=== PATIENT | male | born 1965 | race Hispanic/Latino ===

== ENCOUNTER 2016-09-19 07:05 | Day surgery (SDC) | payer OTHER ==
[~2016-09-19 07:05] MED LIST: ANCEF/STERILE WATER 2 GM/20 ML 20 ML IV NR; NACL 0.9% 1000 ML 1,000 ML IV SCH
--- NOTE | 2016-09-19 08:18 | Anesthesia Consultation ---
Addendum entered and electronically signed by CANDELARIO JONES PA 09/19/16 09:12: [id number] Original Note: Anesthesia Consult and Med Hx Date of service: 09/19/16 - Airway Anesthetic Teeth Evaluation: Good ROM Head & Neck: Adequate Mental/Hyoid Distance: Adequate Mallampati Class: Class II Intubation Access Assessment: Probably Good - Pre-Operative Health Status Proposed Anesthetic Plan: General - Other Systems Hx Alcohol Use: Yes (BEER ON SPECIAL OCCAS) Hx Obesity: Yes (BMI 36.5)
--- NOTE | 2016-09-19 08:19 | Anesthesia Day of Surgery ---
Anesthesia Day of Surgery - Day of Surgery Patient Examined: Yes Patient H&P Reviewed: Yes Patient is NPO: Yes
[2016-09-19] MEDS ORDERED: DIPRIVAN 10 MG/ML IV ONE (08:44)
[2016-09-19] MEDS ORDERED: DILAUDID ONE ×2 (08:44→12:21)
[2016-09-19] MEDS ORDERED: PEPCID IV NR (09:00)
[2016-09-19] MEDS ORDERED: VERSED IV NR (09:00)
[2016-09-19] MEDS ORDERED: ZOFRAN ONE (10:08)
[2016-09-19] MEDS ORDERED: XYLOCAINE MPF 2% ONE (10:08)
[2016-09-19] MEDS ORDERED: MARCAINE 0.5% INFILTRATI ONE (10:44)
[2016-09-19] MEDS ORDERED: NACL 0.9% IR ONE (10:44)
--- NOTE | 2016-09-19 12:10 | Operative Report ---
Operative Report Operative Report: Date of procedure: 09/19/2016 Pre-operative diagnosis: Subcutaneous mass uncertain etiology, left lower leg Post-operative diagnosis: Inflammatory tissue, fascial defect anterior/lateral compartment with sensory neural entrapment Procedure name(s): Excision of inflammatory mass, varicose veins, neural lysis left fascial defect lower leg Surgeon: Waqar Garcia MD Anesthesia: Oral using LMA local field block EBL: Minimal Specimen(s): Laboratory tissue, varicose veins, nerve Complications: None Findings: Fascial defect with muscle bulging entrapping vein artery and nerve left lower leg lateral compartment Procedure: Patient in the supine position after adequate levels of general anesthesia was obtained the left lower extremity was prepped and draped using standard sterile technique. A longitudinal incision was made over the previously marked mass lateral aspect of the left lower leg fully carried down into the soft tissue. Varicosities were identified and ligated. Slowly but surely and dissected the inflammatory tissue away from the area doing my best to identify any neural tissue that was encountered. Laterally it was found that there was a relatively large at least quarter to half dollar sized defect in the fascia with muscle (anterior tibialis, extensor digitorum )bulging through this defect like a hernia. Appeared that a sensory nerve was entrapped at the fascial edge by this muscle bulge and may have accounted for the pain. The peroneal nerve was identified and preserved. I gradually delineated the entire fascial defect and the bulge and removed all inflammatory tissue leaving only muscle behind. At least 1 of the sensory nerves were sacrificed the others were moved. I extended the fascial opening vertically both proximal and distal in an effort to reduce the hernia type effect tissue was sent for pathology I then brought the entire area using Marcaine 0.5% but elected not to close the fascial defect. Rather I closed the skin using interrupted vertical mattress sutures. Sterile dressing was applied the patient was extubated and returned to recovery area in stable condition having tolerated the procedure well. Needle counts were correct.
--- NOTE | 2016-09-19 12:15 | Short Stay Summary ---
Short Stay Documentation Date of service: 09/19/16 Narrative H&P: Admitted to the OR for outpatient excision of mass of uncertain etiology lateral aspect left calf - History H&P: obtained from office - Allergies and Medications Current Medications: Allergies sulfamethoxazole [From Bactrim] Allergy (Verified 09/10/16 17:38) Hives trimethoprim [From Bactrim] Allergy (Verified 09/10/16 17:38) Hives Home Medications Medication Instructions Recorded Confirmed Last Taken Type Mv,Ca,Min/Iron Fum/FA/Lyco/Lut 1 each PO QDAY 09/10/16 09/19/16 09/18/16 09:00 History [Complete Multi Tablet] Zinc Gluconate [Elemental Zinc] 30 mg PO QDAY 09/10/16 09/19/16 09/18/16 09:00 History Active Medications Famotidine (Pepcid) 20 mg IV PREOP NR Stop: 09/19/16 23:59 Last Admin: 09/19/16 08:38 Dose: 20 mg Cefazolin Sodium (Ancef/Sterile Water 2 Gm/20 Ml) 20 mls @ 80 mls/hr IV PREOP NR PRN Reason: Protocol Stop: 09/19/16 23:59 Sodium Chloride (Nacl 0.9% 1000 Ml) 1,000 mls @ 42 mls/hr IV DIRECT NESHA Last Admin: 09/19/16 08:36 Dose: 42 mls/hr Midazolam HCl (Versed) 2 mg IV PREOP NR Stop: 09/19/16 23:59 Last Admin: 09/19/16 08:36 Dose: 2 mg - Brief post op/procedure progress note Date of procedure: 09/19/16 Procedure: Pre-operative diagnosis: Subcutaneous mass uncertain etiology, left lower leg Post-operative diagnosis: Inflammatory tissue, fascial defect anterior/lateral compartment with sensory neural entrapment Procedure name(s): Excision of inflammatory mass, varicose veins, neural lysis left fascial defect lower leg Surgeon: Waqar Garcia MD Anesthesia: Oral using LMA local field block EBL: Minimal Specimen(s): Laboratory tissue, varicose veins, nerve Complications: None Findings: Fascial defect with muscle bulging entrapping vein artery and nerve left lower leg lateral compartment Procedure: Patient in the supine position after adequate levels of general anesthesia was obtained the left lower extremity was prepped and draped using standard sterile technique. A longitudinal incision was made over the previously marked mass lateral aspect of the left lower leg fully carried down into the soft tissue. Varicosities were identified and ligated. Slowly but surely and dissected the inflammatory tissue away from the area doing my best to identify any neural tissue that was encountered. Laterally it was found that there was a relatively large at least quarter to half dollar sized defect in the fascia with muscle (anterior tibialis, extensor digitorum )bulging through this defect like a hernia. Appeared that a sensory nerve was entrapped at the fascial edge by this muscle bulge and may have accounted for the pain. The peroneal nerve was identified and preserved. I gradually delineated the entire fascial defect and the bulge and removed all inflammatory tissue leaving only muscle behind. At least 1 of the sensory nerves were sacrificed the others were moved. I extended the fascial opening vertically both proximal and distal in an effort to reduce the hernia type effect tissue was sent for pathology I then brought the entire area using Marcaine 0.5% but elected not to close the fascial defect. Rather I closed the skin using interrupted vertical mattress sutures. Sterile dressing was applied the patient was extubated and returned to recovery area in stable condition having tolerated the procedure well. Needle counts were correct. - Hospital course Hospital course: Benign - Disposition Condition at discharge: Poor Disposition: DISCHARGED TO HOME OR SELFCARE Short Stay Discharge Plan Activity: advance as tolerated Weight Bearing Status: Weight Bear as Tolerated Diet: regular Wound: keep clean and dry Special Instructions: no heavy lifting Follow up with: CATIE ANGLIN MD [Primary Care Provider] - 7 Days WAQAR GARCIA MD [Staff Physician] - 14 Days Prescriptions: Oxycodone HCl/Acetaminophen [Percocet 10/325 mg] 1 each PO Q6HR PRN #50 tablet PRN Reason: Pain
--- NOTE | 2016-09-19 12:20 | Post Anesthesia Evaluation ---
- Post Anesthesia Evaluation Patient Participated: Yes Airway Patent: Yes Stable Respiratory Function: Yes Nausea/Vomiting: No Temp > 96.8F: Yes Pain Manageable: Yes Adequeate Hydration: Yes Anesthesia Complications: No
[2016-09-19] MEDS ORDERED: DILAUDID IV PRN ×2 (12:37→12:41)
[2016-09-19 13:36] VITALS: BP 137/85
== END 2016-09-19 13:45 | disposition home or self-care (01) ==
LOC: OR 07:05
PROVIDERS: ATTEND Surgery Vascular Surgery
DX: I83.92 Asymptomatic varicose veins of left lower extremity (principal); M79.89 Other specified soft tissue disorders; G58.8 Other specified mononeuropathies; M19.90 Unspecified osteoarthritis, unspecified site; F17.210 Nicotine dependence, cigarettes, uncomplicated; Z72.89 Other problems related to lifestyle; E66.9 Obesity, unspecified; Z68.36 Body mass index [BMI] 36.0-36.9, adult; Z80.9 Family history of malignant neoplasm, unspecified
CPT/HCPCS: 27618; 37799; 88305; J0690; J1170; J2250; J2405; J2704; J7030